=== PATIENT | male | born 1975 | race Two or more races ===

== ENCOUNTER 2025-04-08 11:21 | Emergency (ER) | payer MEDICARE, SELFPAY ==
[2025-04-08 11:22] VITALS: BMI 27.1
[2025-04-08 11:30] VITALS: BP 148/90; PULSE 102; RESP 19; TEMP 36.9; O2SAT 99
--- NOTE | 2025-04-08 11:38 | EDRME_ITS ---
Rapid Medical Screening Exam RME Arrival date/time: 04/08/25 11:21 49-year-old male presents to the Emergency Department for complaints of infection to his right foot ongoing x 1 year patient reports he is diabetic. Patient has infection of the right foot I suspect patient most likely has osteomyelitis Explained to patient that he needs lab work and imaging as well as admission patient reports he is going to leave and go to [facility] Chief Complaint: Ankle/Foot Injury Time Seen by Provider: 04/08/25 11:33 Vital signs: Vital Signs Temperature 98.4 F 04/08/25 11:30 Pulse Rate 102 H 04/08/25 11:30 Respiratory Rate 19 04/08/25 11:30 Blood Pressure 148/90 H 04/08/25 11:30 Pulse Oximetry (%) 99 04/08/25 11:30 Oxygen Delivery Method Room Air 04/08/25 11:30
--- NOTE | 2025-04-08 11:39 | PC.NURSE ---
Patient stated he was leaving and going to [facility] Patient seen walking out of ED.
== END 2025-04-08 11:42 | disposition left against medical advice (07) ==
PROVIDERS: Emergency Provider Family Medicine
DX: L08.9 Local infection of the skin and subcutaneous tissue, unspecified (principal); E11.9 Type 2 diabetes mellitus without complications; Z53.29 Procedure and treatment not carried out because of patient's decision for other reasons
CPT/HCPCS: 99281

== ENCOUNTER → 2025-05-02 | Outpatient (BNVA) | payer MEDICARE, SELFPAY | END | disposition home or self-care (01) | PROVIDERS: PCP Nurse Practitioner Primary Care; Referring Provider Nurse Practitioner Primary Care; Visit Provider Nurse Practitioner Primary Care | DX: Z11.51 Encounter for screening for human papillomavirus (HPV) (principal); Z76.89 Persons encountering health services in other specified circumstances; Z13.220 Encounter for screening for lipoid disorders; E11.65 Type 2 diabetes mellitus with hyperglycemia; Z13.29 Encounter for screening for other suspected endocrine disorder; Z13.21 Encounter for screening for nutritional disorder; I10 Essential (primary) hypertension; B02.9 Zoster without complications ==

== ENCOUNTER → 2025-05-15 | Outpatient (BNVA) | payer MEDICARE, SELFPAY | END | disposition home or self-care (01) | PROVIDERS: PCP Nurse Practitioner Primary Care; Referring Provider Nurse Practitioner Primary Care; Visit Provider Nurse Practitioner Primary Care | DX: E78.5 Hyperlipidemia, unspecified (principal); B35.4 Tinea corporis; R19.5 Other fecal abnormalities; Z23 Encounter for immunization | CPT/HCPCS: 90471; 90686; 99173 ==

== ENCOUNTER → 2025-06-02 | Outpatient (BNVA) | payer MEDICARE, SELFPAY | END | disposition home or self-care (01) | PROVIDERS: PCP Internal Medicine; Referring Provider Internal Medicine; Visit Provider Internal Medicine | DX: R80.9 Proteinuria, unspecified (principal); E78.00 Pure hypercholesterolemia, unspecified; I10 Essential (primary) hypertension; E11.21 Type 2 diabetes mellitus with diabetic nephropathy; B35.4 Tinea corporis; L08.9 Local infection of the skin and subcutaneous tissue, unspecified; E11.69 Type 2 diabetes mellitus with other specified complication | CPT/HCPCS: 99213 ==

== ENCOUNTER → 2025-06-21 | Outpatient (BNVA) | payer MEDICARE, SELFPAY | END | disposition home or self-care (01) | PROVIDERS: PCP Nurse Practitioner Primary Care; Referring Provider Nurse Practitioner Primary Care; Visit Provider Nurse Practitioner Primary Care | DX: E11.21 Type 2 diabetes mellitus with diabetic nephropathy (principal); I10 Essential (primary) hypertension; L08.9 Local infection of the skin and subcutaneous tissue, unspecified; E11.69 Type 2 diabetes mellitus with other specified complication | CPT/HCPCS: 83036; 99215 ==